=== PATIENT | female | born 1950 | race Two or more races ===

== ENCOUNTER 2020-08-06 09:28 | Emergency (ER) | payer MEDICARE, MEDICAID ==
[~2020-08-06] VITALS: Ht 160 cm; Wt 68.7 kg
--- NOTE | 2020-08-06 09:36 | NUR ---
CALLED IN [place].
--- NOTE | 2020-08-06 09:52 | NUR ---
VISITOR ALLOWED FOR INTERPRETING.
--- NOTE | 2020-08-06 11:00 | NUR ---
REPORT GIVEN TO MARLEN
[2020-08-06 11:03] LABS: BASOPHILS % (AUTO) 1 % (0-1); EOSINOPHILS % (AUTO) 3 % (1-7); LYMPHOCYTES % (AUTO) 33 % (22-44); MEAN CORPUSCULAR HEMOGLOBIN 31.3 pg (27.0-34.8); MEAN CORPUSCULAR HGB CONC 34.3 g/dL (32.4-35.8); MEAN PLATELET VOLUME 6.1 fL (7.4-10.4); MONOCYTES % (AUTO) 11 % (2-9); NEUTROPHILS % (AUTO) 52 % (42-75); PLATELET COUNT 554 x10^3/uL (130-400); RED BLOOD COUNT 4.39 x10^6/uL (3.82-5.3); RED CELL DISTRIBUTION WIDTH 13.2 % (9.6-15.2)
[2020-08-06 11:06] LABS: MD NO
[2020-08-06 11:17] LABS: ALANINE AMINOTRANSFERASE 51 U/L (12-78); ALBUMIN 3.6 g/dL (3.4-5.0); ANION GAP 6 mmol/L (5-15); CHLORIDE 103 mmol/L (98-107); CREATININE 0.81 mg/dL (0.55-1.02)
[2020-08-06] MEDS ORDERED: CEFTRIAXONE 1,000 MG ONE (11:18)
[2020-08-06] MEDS ORDERED: AZITHROMYCIN 250 MG TABLET ONE (11:18)
[2020-08-06] MEDS ORDERED: LIDOCAINE-MPF 1%, 2ML ONE (11:18)
[2020-08-06 11:20] LABS: ALKALINE PHOSPHATASE 83 U/L (45-117); BILIRUBIN,TOTAL 0.8 mg/dL (0.2-1.0); TOTAL PROTEIN 8.2 g/dL (6.4-8.2); TROPONIN I < 0.015 ng/mL (0.000-0.045)
[2020-08-06 11:26] VITALS: BP 166/75
--- NOTE | 2020-08-06 11:26 | NUR ---
INTERSTATE PLANNER PER SEP. PT RESTING COMFORTABLY ON GURNEY. NO RESP DISTRESS NOTED.
[2020-08-06] MEDS ORDERED: AZITHROMYCIN 500 MG TABLET PO ONE (11:30)
[2020-08-06] MEDS ORDERED: CEFTRIAXONE 1,000 MG IM ONE (11:30)
== END 2020-08-06 12:21 | disposition home or self-care (01) ==
LOC: ED 10:19
DX: U07.1 COVID-19 (principal); J18.9 Pneumonia, unspecified organism; R07.89 Other chest pain; R06.02 Shortness of breath; R94.31 Abnormal electrocardiogram [ECG] [EKG]
CPT/HCPCS: 36415; 71045; 80053; 84484; 85025; 87040; 93005; 96372; 99285; J0696